=== PATIENT | female | born 1960 | race Caucasian/White ===

== ENCOUNTER → 2024-02-06 09:13 | Outpatient (REF) | payer OTHER, SELFPAY ==
[2024-02-06 10:41] LABS: ALT (SGPT) 38 U/L (0-35); AST (SGOT) 37 U/L (14-36); Albumin 4.8 g/dl (3.5-5.0); Alkaline Phosphatase 52 U/L (38-126); Blood Urea Nitrogen 10 mg/dl (7-17); Calcium 9.7 mg/dl (8.4-10.2); Carbon Dioxide 22 mmol/L (22-30); Chloride 106 mmol/L (98-107); Glucose 81 mg/dl (70-99); HDL Cholesterol 72 mg/dl; LDL Cholesterol, Calculated 69 mg/dl; Magnesium 1.9 mg/dl (1.6-2.3); Potassium 3.7 mmol/L (3.5-5.1); Sodium 137 mmol/L (135-145); Total Bilirubin 0.8 mg/dl (0.2-1.3); Total Cholesterol 155 mg/dl (50-199); Triglyceride 70 mg/dl (10-149); Very Low Density Lipoprotein 14 mg/dl (0-30); eGFR > 60.00
[2024-02-06 10:43] LABS: NT-proBNP 129 pg/ml
[2024-02-06 10:52] LABS: % Basophils 0.6 % (0-2); % Immature Granulocytes 0.3 % (0-0.5); % Lymphocytes 22.6 % (20.5-51.1); % Monocytes 5.4 % (1.7-9.3); % Neutrophils 64.1 % (42.2-75.2); Absolute Eosinophils 0.5 10^3/uL (0-0.7); Absolute Lymphocytes 1.5 10^3/uL (1.2-3.4); Absolute Monocytes 0.4 10^3/uL (0.1-0.6); Absolute Neutrophils 4.2 10^3/uL (1.4-6.5); Hematocrit 39.7 % (37.0-47.0); Hemoglobin 13.3 g/dL (12.0-16.0); Mean Corp Hgb Conc. 33.5 g/dL (33.0-37.0); Mean Corpuscular Hgb 30.6 pg (27.0-31.0); Mean Corpuscular Volume 91.3 fL (81.0-99.0); Mean Platelet Volume 10.6 fL (7.4-10.4); Nucleated Red Blood Cells % 0 %; Platelet Count 194 10^3/uL (130-400); Red Blood Cell Count 4.35 10^6/uL (4.20-5.40); Red Cell Dist. Width 12.6 % (11.5-14.5); White Blood Cell Count 6.5 10^3/uL (4.8-10.8)
[2024-02-06 11:05] LABS: Digoxin < 0.4 ng/ml (0.8-2.0)
[2024-02-06 11:16] LABS: TSH Reflex To Free T4 1.27 uIU/ml (0.47-4.68)
== END ==
LOC: REG 09:13
PROVIDERS: ATTENDING PHYSICIAN Internal Medicine Cardiovascular Disease; FAMILY PHYSICIAN Internal Medicine Hematology & Oncology; REFERRING PHYSICIAN Family Medicine
DX: I49.3 Ventricular premature depolarization (principal); I49.1 Atrial premature depolarization; I47.10 Supraventricular tachycardia, unspecified; R06.09 Other forms of dyspnea; R07.2 Precordial pain; I25.10 Atherosclerotic heart disease of native coronary artery without angina pectoris; R00.2 Palpitations; Z86.718 Personal history of other venous thrombosis and embolism; E78.6 Lipoprotein deficiency; Z82.49 Family history of ischemic heart disease and other diseases of the circulatory system; R55 Syncope and collapse; E78.00 Pure hypercholesterolemia, unspecified; E66.3 Overweight
CPT/HCPCS: 36415; 80053; 80061; 80162; 83735; 83880; 84443; 85025

== ENCOUNTER → 2024-03-05 15:00 | Outpatient (REF) | payer OTHER, SELFPAY | LOC: RAD 15:00 | PROVIDERS: ATTENDING PHYSICIAN Nurse Practitioner Family; FAMILY PHYSICIAN Family Medicine; OTHER PHYSICIAN Internal Medicine Hematology & Oncology; REFERRING PHYSICIAN Internal Medicine Cardiovascular Disease | DX: R22.31 Localized swelling, mass and lump, right upper limb (principal); I82.402 Acute embolism and thrombosis of unspecified deep veins of left lower extremity; D51.9 Vitamin B12 deficiency anemia, unspecified | CPT/HCPCS: 93971 ==

== ENCOUNTER 2024-03-05 16:33 | Emergency (ER) | payer OTHER, SELFPAY ==
[2024-03-05 16:35] VITALS: BP 179/108
[2024-03-05 17:02] LABS: % Eosinophils 9.8 % (0-6); % Immature Granulocytes 0.1 % (0-0.5); % Lymphocytes 31.6 % (20.5-51.1); % Monocytes 5.7 % (1.7-9.3); % Neutrophils 51.8 % (42.2-75.2); Absolute Basophils 0.1 10^3/uL (0-0.2); Absolute Eosinophils 0.7 10^3/uL (0-0.7); Absolute Lymphocytes 2.2 10^3/uL (1.2-3.4); Absolute Monocytes 0.4 10^3/uL (0.1-0.6); Absolute Neutrophils 3.5 10^3/uL (1.4-6.5); Hematocrit 39.5 % (37.0-47.0); Hemoglobin 13.9 g/dL (12.0-16.0); Mean Corp Hgb Conc. 35.2 g/dL (33.0-37.0); Mean Corpuscular Hgb 30.5 pg (27.0-31.0); Mean Corpuscular Volume 86.8 fL (81.0-99.0); Mean Platelet Volume 10.2 fL (7.4-10.4); Nucleated Red Blood Cells % 0 %; Platelet Count 184 10^3/uL (130-400); Red Blood Cell Count 4.55 10^6/uL (4.20-5.40); Red Cell Dist. Width 12.4 % (11.5-14.5); White Blood Cell Count 6.8 10^3/uL (4.8-10.8)
[2024-03-05 17:10] LABS: ALT (SGPT) 29 U/L (0-35); AST (SGOT) 27 U/L (14-36); Albumin 4.9 g/dl (3.5-5.0); Alkaline Phosphatase 55 U/L (38-126); Blood Urea Nitrogen 9 mg/dl (7-17); Calcium 9.9 mg/dl (8.4-10.2); Carbon Dioxide 23 mmol/L (22-30); Glucose 91 mg/dl (70-99); Total Protein 7.2 g/dl (6.3-8.2); eGFR > 60.00
[2024-03-05 17:14] LABS: Chloride 110 mmol/L (98-107); Potassium 3.9 mmol/L (3.5-5.1); Sodium 141 mmol/L (135-145)
[2024-03-05 17:22] LABS: Troponin I < 0.012 ng/ml
[2024-03-05 23:34] VITALS: BP 151/93
[2024-03-06] VITALS: BP 151/91
--- NOTE | 2024-03-06 00:53 | ED.GENMED ---
History of Present Illness
General
Chief Complaint: Numbness
Source: patient
Time Seen by Provider: 03/05/24 23:34
Travel History
Have you had any contact with someone who has COVID-19?: No
Do you have any symptoms of coronavirus? Fever > 100 degrees, chills, cough, shortness of breath, sore throat, loss of taste or smell, muscle aches, or headache?: No
History of Present Illness
History of Present Illness:
63-year-old female presents to the emergency room with multiple complaints. Patient states that she feels generally weak and unwell. The past 3-4 mornings she is woken up with sweatiness of her face. She also has been experiencing paresthesias in
her hands and feet. She perceives swelling in her right hand. 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 This was evidently negative. She
was referred to the emergency room for further evaluation. No focal weakness. Patient denies chest pain per se. No shortness of breath.
Past History
Past History
ED Past Medical History: Other (rosacia)
ED Past Surgical History: Cholecystectomy
Social History
Tobacco: Non-smoker
Alcohol: None
Drug: None
Personal:
Living: with family
Phy Exam
Physical Exam
Physical Exam:
General: Awake, Alert, Oriented X3. No acute distress.
Vitals: unremarkable
Head: Atraumatic
Eyes: Pupils equal, EOMI
Throat: Airway intact, no exudates
Neck: Trachea midline
Lungs: Clear and equal b/l
Heart: Regular rate, no murmurs
Abd: Soft, Nontender, No pulsatile mass
Neuro: Nonfocal
Skin: Warm, dry, no rash
Extremities: pulses equal b/l, no edema
Course
Orders/Labs/Results
Orders:
Orders
03/05/24 16:38
Electrocardiogram (*1) Urgent
Reason for Study: Hypertension, Benign
03/05/24 16:39
EKG- Treatment ONCE
03/05/24 16:45
Complete Blood Count/With Diff Urgent
Comprehensive Metabolic Panel Urgent
Troponin I Urgent
03/05/24 23:55
Rapid Strep Group A Urgent
PHIL Source: Throat/Pharynx
Specimen Description:
Date Specimen was Collected: 03/06/24
Time Specimen was Collected: 00:10
Abnormal Lab Results
03/05/24
16:45
Eosinophils % 9.8 H %
(0-6)
Chloride 110 H mmol/L
(98-107)
03/05/24 16:45
03/05/24 16:45
Vital Signs
Initial and Last Documented VS:
Initial Vital Signs
Temp Pulse Resp BP Pulse Ox
98.2 F 85 18 179/108 99
03/05/24 16:35 03/05/24 16:35 03/05/24 16:35 03/05/24 16:35 03/05/24 16:35
Last Documented Vital Signs
Temp Pulse Resp BP Pulse Ox
98.2 F 85 18 151/91 97
03/05/24 16:35 03/05/24 16:35 03/05/24 16:35 03/06/24 00:00 03/06/24 00:45
MDM/Problems Addressed
Differential Diagnosis Includes:
Electrolyte abnormality, acute coronary syndrome,
MDM/Problems Addressed:
EKG shows no acute ischemic changes. Troponin is normal. Patient's been having symptoms for couple days so 1 troponin adequately excludes ACS. LFTs and electrolytes are all essentially normal. No evidence of an unstable process here in the
emergency room. Patient concerned about strep has relative recently diagnosed with strep. Rapid strep test is negative. Unclear what the source the patient's symptoms are but there is no evidence of an unstable process. Patient stable for
discharge home and outpatient follow-up.
*Critical Care Note
Total Time (30-74mins, 75-104mins- exclusive of procedures): Not Applicable
ED Attending Note
-
Portions of this chart may have been created with voice recognition software.� Occasional wrong word or��sound alike� substitutions may have occurred due to the inherent limitations of voice recognition software.
Discharge Plan
Departure
Patient Disposition: Home (Routine Discharge)
Date of Disposition: 03/06/24
Time of Disposition: 00:53
Patient with high blood pressure during this ER visit?: Yes
Condition: Good
Discharge Problem:
Paresthesia
Instructions: Paresthesia (DC)
Prescriptions:
No Action
atorvastatin 10 MG tablet
10 mg PO HS
metronidazole 500 MG tablet
500 mg PO TID Qty: 30 0RF
levofloxacin 500 MG tablet
500 mg PO DAILY Qty: 10 0RF
Eliquis 5 mg tablet
5 mg PO BID Qty: 70 0RF
Rx Instructions:
Take 2 tabs PO BID x 1 week and 1 tab PO BID x 3 weeks
amoxicillin-pot clavulanate 875-125 mg tablet
1 tab PO BID Qty: 20 0RF
Referrals:
Fabian Garcia DO [Family Provider] -
Diego Shepherd MD [Active] -
Activity Restrictions/Additional Instructions:
Please follow up with your family doctor. I have also provided the contact information for one of our neurologists for you to follow up with as well.
Interventions
Interventions:
*Risk Screen - Suicide Last Done: 03/05/24 16:35
*General Assessment Last Done: 03/05/24 16:35
*Neglect/Abuse Screening Last Done: 03/05/24 16:35
ED- Fall Risk Assessment Last Done: 03/06/24 01:31
*ED COVID-19 Vaccine History Last Done: 03/05/24 16:35
*Nursing Disposition Last Done: 03/06/24 01:31
ED- Neurological Assessment Last Done: 03/06/24 01:25
Discharge Date and Time
Discharge Date/Time: 03/06/24 01:32
Print Language: EGYPTIAN
== END 2024-03-06 01:32 | disposition home or self-care (01) ==
LOC: EMR 16:33
PROVIDERS: Emergency Medicine; EMERGENCY PHYSICIAN Emergency Medicine; FAMILY PHYSICIAN Family Medicine; REFERRING PHYSICIAN Internal Medicine Hematology & Oncology
DX: R20.2 Paresthesia of skin (principal); R03.0 Elevated blood-pressure reading, without diagnosis of hypertension
CPT/HCPCS: 99283; 80053; 84484; 85025; 87070; 87880; 93005

== ENCOUNTER → 2024-03-09 08:35 | Outpatient (REF) | payer OTHER, SELFPAY ==
[2024-03-09 09:10] LABS: % Basophils 1.2 % (0-2); % Eosinophils 8.4 % (0-6); % Immature Granulocytes 0.2 % (0-0.5); % Lymphocytes 23.2 % (20.5-51.1); Absolute Basophils 0.1 10^3/uL (0-0.2); Absolute Eosinophils 0.5 10^3/uL (0-0.7); Absolute Lymphocytes 1.3 10^3/uL (1.2-3.4); Absolute Monocytes 0.3 10^3/uL (0.1-0.6); Absolute Neutrophils 3.5 10^3/uL (1.4-6.5); Hematocrit 41.1 % (37.0-47.0); Hemoglobin 14.2 g/dL (12.0-16.0); Mean Corp Hgb Conc. 34.5 g/dL (33.0-37.0); Mean Corpuscular Hgb 30.4 pg (27.0-31.0); Mean Platelet Volume 10.1 fL (7.4-10.4); Nucleated Red Blood Cells % 0 %; Platelet Count 193 10^3/uL (130-400); Red Blood Cell Count 4.67 10^6/uL (4.20-5.40); Red Cell Dist. Width 12.3 % (11.5-14.5); White Blood Cell Count 5.7 10^3/uL (4.8-10.8)
[2024-03-09 09:47] LABS: D-Dimer 0.61 ug/mlFEU (0.00-0.50)
[2024-03-09 11:13] LABS: Folate 9.1 ng/ml (2.76-20); Vitamin B12 534 pg/ml (239-931)
== END ==
LOC: REG 08:35
PROVIDERS: ATTENDING PHYSICIAN Internal Medicine Hematology & Oncology; FAMILY PHYSICIAN Family Medicine; REFERRING PHYSICIAN Internal Medicine Cardiovascular Disease
DX: I82.402 Acute embolism and thrombosis of unspecified deep veins of left lower extremity (principal); D51.9 Vitamin B12 deficiency anemia, unspecified
CPT/HCPCS: 36415; 82607; 82746; 85025; 85379

== ENCOUNTER → 2024-03-17 09:26 | Outpatient (REF) | payer OTHER, SELFPAY ==
[2024-03-17 11:00] LABS: ALT (SGPT) 27 U/L (0-35); AST (SGOT) 24 U/L (14-36); Albumin 4.5 g/dl (3.5-5.0); Alkaline Phosphatase 59 U/L (38-126); Blood Urea Nitrogen 13 mg/dl (7-17); Calcium 9.7 mg/dl (8.4-10.2); Carbon Dioxide 24 mmol/L (22-30); Chloride 106 mmol/L (98-107); Glucose 97 mg/dl (70-99); HDL Cholesterol 61 mg/dl; LDL Cholesterol, Calculated 73 mg/dl; Sodium 139 mmol/L (135-145); Total Bilirubin 0.6 mg/dl (0.2-1.3); Total Cholesterol 148 mg/dl (50-199); Total Protein 6.8 g/dl (6.3-8.2); Triglyceride 71 mg/dl (10-149); Very Low Density Lipoprotein 14 mg/dl (0-30); eGFR > 60.00
[2024-03-17 11:17] LABS: Vitamin D, 25-OH*** 56.8 ng/mL (30-80)
[2024-03-17 11:31] LABS: TSH Reflex To Free T4 1.38 uIU/ml (0.47-4.68)
[2024-03-17 11:50] LABS: Vitamin B12 641 pg/ml (239-931)
[2024-03-17 12:11] LABS: Glycohemoglobin (HgbA1c) 5.6 % (4.0-5.6)
== END ==
LOC: REG 09:26
PROVIDERS: ATTENDING PHYSICIAN Family Medicine; FAMILY PHYSICIAN Family Medicine; OTHER PHYSICIAN Internal Medicine Cardiovascular Disease; REFERRING PHYSICIAN Internal Medicine Hematology & Oncology
DX: E78.5 Hyperlipidemia, unspecified (principal); R73.01 Impaired fasting glucose; E53.8 Deficiency of other specified B group vitamins; E55.9 Vitamin D deficiency, unspecified
CPT/HCPCS: 36415; 80053; 80061; 82306; 82607; 83036; 84443

== ENCOUNTER → 2024-07-01 15:13 | Outpatient (REF) | payer OTHER, SELFPAY | LOC: RAD 15:13 | PROVIDERS: ATTENDING PHYSICIAN Internal Medicine Critical Care Medicine; FAMILY PHYSICIAN Family Medicine; REFERRING PHYSICIAN Internal Medicine Cardiovascular Disease | DX: R91.1 Solitary pulmonary nodule (principal) | CPT/HCPCS: 71250 ==

== ENCOUNTER → 2024-08-11 11:43 | Outpatient (REF) | payer OTHER, SELFPAY ==
[2024-08-11 13:36] LABS: % Basophils 1.1 % (0-2); % Eosinophils 6.5 % (0-6); % Immature Granulocytes 0.2 % (0-0.5); % Lymphocytes 25.7 % (20.5-51.1); % Monocytes 6.7 % (1.7-9.3); % Neutrophils 59.8 % (42.2-75.2); Absolute Basophils 0.1 10^3/uL (0-0.2); Absolute Eosinophils 0.4 10^3/uL (0-0.7); Absolute Lymphocytes 1.5 10^3/uL (1.2-3.4); Absolute Monocytes 0.4 10^3/uL (0.1-0.6); Absolute Neutrophils 3.4 10^3/uL (1.4-6.5); Hematocrit 39.8 % (37.0-47.0); Hemoglobin 13.9 g/dL (12.0-16.0); Mean Corp Hgb Conc. 34.9 g/dL (33.0-37.0); Mean Corpuscular Hgb 31.2 pg (27.0-31.0); Mean Corpuscular Volume 89.4 fL (81.0-99.0); Mean Platelet Volume 11.7 fL (7.4-10.4); Nucleated Red Blood Cells % 0 %; Platelet Count 151 10^3/uL (130-400); Red Blood Cell Count 4.45 10^6/uL (4.20-5.40); Red Cell Dist. Width 12.1 % (11.5-14.5); White Blood Cell Count 5.7 10^3/uL (4.8-10.8)
[2024-08-11 14:02] LABS: NT-proBNP 149 pg/ml
[2024-08-11 14:09] LABS: ALT (SGPT) 34 U/L (0-35); AST (SGOT) 27 U/L (14-36); Albumin 4.7 g/dl (3.5-5.0); Alkaline Phosphatase 41 U/L (38-126); Blood Urea Nitrogen 13 mg/dl (7-17); Calcium 9.6 mg/dl (8.4-10.2); Carbon Dioxide 25 mmol/L (22-30); Chloride 103 mmol/L (98-107); Glucose 85 mg/dl (70-99); Magnesium 2.1 mg/dl (1.6-2.3); Sodium 142 mmol/L (135-145); Total Bilirubin 0.8 mg/dl (0.2-1.3); Total Protein 6.8 g/dl (6.3-8.2); eGFR > 60.00
[2024-08-11 14:39] LABS: TSH Reflex To Free T4 0.84 uIU/ml (0.47-4.68)
[2024-08-12 08:15] LABS: Glycohemoglobin (HgbA1c) 5.4 % (4.0-5.6)
[2024-08-14 00:22] LABS: Lipoprotein a (Lp a) 120 mg/dL (<=29)
== END ==
LOC: REG 11:43
PROVIDERS: ATTENDING PHYSICIAN Internal Medicine Cardiovascular Disease; FAMILY PHYSICIAN Family Medicine; OTHER PHYSICIAN Internal Medicine Endocrinology, Diabetes & Metabolism; REFERRING PHYSICIAN Internal Medicine Hematology & Oncology
DX: I49.3 Ventricular premature depolarization (principal); I49.1 Atrial premature depolarization; I47.10 Supraventricular tachycardia, unspecified; R06.09 Other forms of dyspnea; R07.2 Precordial pain; I25.10 Atherosclerotic heart disease of native coronary artery without angina pectoris; R00.2 Palpitations; Z86.718 Personal history of other venous thrombosis and embolism; E78.6 Lipoprotein deficiency; Z82.49 Family history of ischemic heart disease and other diseases of the circulatory system; R55 Syncope and collapse; E78.00 Pure hypercholesterolemia, unspecified; E66.3 Overweight
CPT/HCPCS: 36415; 80053; 83036; 83695; 83735; 83880; 84443; 85025

== ENCOUNTER → 2024-09-15 09:23 | Outpatient (REF) | payer OTHER, SELFPAY ==
[2024-09-15 10:55] LABS: % Eosinophils 5.6 % (0-6); % Immature Granulocytes 0.2 % (0-0.5); % Lymphocytes 30.2 % (20.5-51.1); % Monocytes 6.3 % (1.7-9.3); % Neutrophils 56.7 % (42.2-75.2); Absolute Basophils 0.1 10^3/uL (0-0.2); Absolute Eosinophils 0.3 10^3/uL (0-0.7); Absolute Lymphocytes 1.7 10^3/uL (1.2-3.4); Absolute Monocytes 0.4 10^3/uL (0.1-0.6); Absolute Neutrophils 3.3 10^3/uL (1.4-6.5); Hematocrit 41.2 % (37.0-47.0); Hemoglobin 14.2 g/dL (12.0-16.0); Mean Corp Hgb Conc. 34.5 g/dL (33.0-37.0); Mean Corpuscular Hgb 30.9 pg (27.0-31.0); Mean Corpuscular Volume 89.8 fL (81.0-99.0); Mean Platelet Volume 10.9 fL (7.4-10.4); Nucleated Red Blood Cells % 0 %; Platelet Count 179 10^3/uL (130-400); Red Blood Cell Count 4.59 10^6/uL (4.20-5.40); Red Cell Dist. Width 11.9 % (11.5-14.5); White Blood Cell Count 5.8 10^3/uL (4.8-10.8)
[2024-09-15 11:58] LABS: Ferritin 47.8 ng/ml (11.1-264.0)
[2024-09-15 12:18] LABS: Iron 166 ug/dl (37-170)
[2024-09-15 12:28] LABS: Percent Saturation 54 % (20-50); Total Iron Binding Capacity 306 ug/dl (265-497)
[2024-09-15 12:29] LABS: Folate 13.3 ng/ml (2.76-20); Vitamin B12 858 pg/ml (239-931)
== END ==
LOC: REG 09:23
PROVIDERS: ATTENDING PHYSICIAN Internal Medicine Hematology & Oncology; FAMILY PHYSICIAN Internal Medicine Cardiovascular Disease; REFERRING PHYSICIAN Internal Medicine Endocrinology, Diabetes & Metabolism
DX: I82.402 Acute embolism and thrombosis of unspecified deep veins of left lower extremity (principal); D51.9 Vitamin B12 deficiency anemia, unspecified; R22.31 Localized swelling, mass and lump, right upper limb
CPT/HCPCS: 36415; 82607; 82728; 82746; 83540; 83550; 85025

== ENCOUNTER 2025-01-18 06:20 | Day surgery (SDC) | payer OTHER, SELFPAY | END 2025-01-18 14:19 | disposition home or self-care (01) | LOC: GI 06:20 | PROVIDERS: ATTENDING PHYSICIAN Internal Medicine Gastroenterology | DX: Z12.11 Encounter for screening for malignant neoplasm of colon (principal); K57.30 Diverticulosis of large intestine without perforation or abscess without bleeding; K64.8 Other hemorrhoids; K63.89 Other specified diseases of intestine; Z86.0100 Personal history of colon polyps, unspecified | CPT/HCPCS: 45380; 88305 ==

== ENCOUNTER → 2025-02-02 09:23 | Outpatient (REF) | payer OTHER, SELFPAY ==
[2025-02-02 10:26] LABS: % Eosinophils 11.3 % (0-6); % Immature Granulocytes 0.2 % (0-0.5); % Lymphocytes 28.8 % (20.5-51.1); % Monocytes 6.2 % (1.7-9.3); % Neutrophils 52.5 % (42.2-75.2); Absolute Basophils 0.1 10^3/uL (0-0.2); Absolute Eosinophils 0.6 10^3/uL (0-0.7); Absolute Lymphocytes 1.4 10^3/uL (1.2-3.4); Absolute Monocytes 0.3 10^3/uL (0.1-0.6); Absolute Neutrophils 2.6 10^3/uL (1.4-6.5); Hematocrit 39.2 % (37.0-47.0); Hemoglobin 13.5 g/dL (12.0-16.0); Mean Corp Hgb Conc. 34.4 g/dL (33.0-37.0); Mean Corpuscular Volume 90.1 fL (81.0-99.0); Mean Platelet Volume 10.6 fL (7.4-10.4); Nucleated Red Blood Cells % 0 %; Platelet Count 180 10^3/uL (130-400); Red Blood Cell Count 4.35 10^6/uL (4.20-5.40); Red Cell Dist. Width 12.2 % (11.5-14.5)
[2025-02-02 10:58] LABS: ALT (SGPT) 34 U/L (0-35); AST (SGOT) 24 U/L (14-36); Albumin 4.5 g/dl (3.5-5.0); Alkaline Phosphatase 55 U/L (38-126); Blood Urea Nitrogen 13 mg/dl (7-17); Carbon Dioxide 27 mmol/L (22-30); Chloride 108 mmol/L (98-107); Glucose 93 mg/dl (70-99); HDL Cholesterol 56 mg/dl; LDL Cholesterol, Calculated 86 mg/dl; Magnesium 2.1 mg/dl (1.6-2.3); Potassium 4.5 mmol/L (3.5-5.1); Sodium 144 mmol/L (135-145); Total Bilirubin 0.6 mg/dl (0.2-1.3); Total Cholesterol 152 mg/dl (50-199); Total Protein 6.7 g/dl (6.3-8.2); Triglyceride 52 mg/dl (10-149); Very Low Density Lipoprotein 10 mg/dl (0-30); eGFR > 60.00
[2025-02-02 10:59] LABS: NT-proBNP 55.2 pg/ml
[2025-02-02 11:22] LABS: TSH Reflex To Free T4 1.63 uIU/ml (0.47-4.68)
[2025-02-02 12:53] LABS: Glycohemoglobin (HgbA1c) 5.5 % (4.0-5.6)
== END ==
LOC: REG 09:23
PROVIDERS: ATTENDING PHYSICIAN Internal Medicine Cardiovascular Disease; FAMILY PHYSICIAN Family Medicine; OTHER PHYSICIAN Internal Medicine Endocrinology, Diabetes & Metabolism; OTHER PHYSICIAN Internal Medicine Hematology & Oncology
DX: R74.01 Elevation of levels of liver transaminase levels (principal); Z13.6 Encounter for screening for cardiovascular disorders; I49.3 Ventricular premature depolarization; I49.1 Atrial premature depolarization; R06.09 Other forms of dyspnea; R07.2 Precordial pain; I25.10 Atherosclerotic heart disease of native coronary artery without angina pectoris; R00.2 Palpitations; Z86.718 Personal history of other venous thrombosis and embolism; E78.6 Lipoprotein deficiency; Z82.49 Family history of ischemic heart disease and other diseases of the circulatory system; R55 Syncope and collapse; E78.00 Pure hypercholesterolemia, unspecified
CPT/HCPCS: 36415; 80053; 80061; 83036; 83735; 83880; 84443; 85025

== ENCOUNTER → 2025-08-12 11:10 | Outpatient (REF) | payer OTHER, SELFPAY ==
[2025-08-12 11:57] LABS: Hematocrit 38.7 % (37.0-47.0); Hemoglobin 13.4 g/dL (12.0-16.0); Mean Corp Hgb Conc. 34.6 g/dL (33.0-37.0); Mean Corpuscular Volume 88.0 fL (81.0-99.0); Nucleated Red Blood Cells % 0 %; Platelet Count 180 10^3/uL (130-400); Red Cell Dist. Width 11.9 % (11.5-14.5)
[2025-08-12 12:35] LABS: ALT (SGPT) 30 U/L (0-35); AST (SGOT) 23 U/L (14-36); Albumin 4.7 g/dl (3.5-5.0); Alkaline Phosphatase 45 U/L (38-126); Blood Urea Nitrogen 15 mg/dl (7-17); Calcium 9.8 mg/dl (8.4-10.2); Carbon Dioxide 25 mmol/L (22-30); Chloride 107 mmol/L (98-107); Glucose 96 mg/dl (70-99); HDL Cholesterol 63 mg/dl; LDL Cholesterol, Calculated 80 mg/dl; Magnesium 2.1 mg/dl (1.6-2.3); Potassium 4.7 mmol/L (3.5-5.1); Sodium 138 mmol/L (135-145); Total Protein 7.2 g/dl (6.3-8.2); Very Low Density Lipoprotein 10 mg/dl (0-30); eGFR > 60.00
[2025-08-12 12:57] LABS: Glycohemoglobin (HgbA1c) 5.4 % (4.0-5.6)
== END ==
LOC: REG 11:10
PROVIDERS: ATTENDING PHYSICIAN Internal Medicine Cardiovascular Disease; FAMILY PHYSICIAN Family Medicine; OTHER PHYSICIAN Internal Medicine Endocrinology, Diabetes & Metabolism; REFERRING PHYSICIAN Internal Medicine Hematology & Oncology
DX: R74.01 Elevation of levels of liver transaminase levels (principal); Z13.6 Encounter for screening for cardiovascular disorders; I49.3 Ventricular premature depolarization; I49.1 Atrial premature depolarization; I47.19 Other supraventricular tachycardia; R06.09 Other forms of dyspnea; R07.2 Precordial pain; I25.10 Atherosclerotic heart disease of native coronary artery without angina pectoris; R00.2 Palpitations; Z86.718 Personal history of other venous thrombosis and embolism; E78.6 Lipoprotein deficiency; Z82.49 Family history of ischemic heart disease and other diseases of the circulatory system; R55 Syncope and collapse; E78.00 Pure hypercholesterolemia, unspecified; E66.3 Overweight
CPT/HCPCS: 36415; 80053; 80061; 83036; 83735; 83880; 84443; 85025